=== PATIENT | male | born 1955 | race Caucasian/White ===

== ENCOUNTER 2017-12-14 10:58 | Day surgery (SDC) | payer BC ==
--- NOTE | 2017-12-13 12:46 | RAD REPORT ---
EXAM DESCRIPTION: RAD - Chest Single View - 12/13/2017 12:41 pm CLINICAL HISTORY: Coronary artery disease, hypertension Chest pain. COMPARISON: Chest Pa And Lat (2 Views) dated 06/28/2017; Chest Pa And Lat (2 Views) dated 06/04/2016 FINDINGS: Portable technique limits examination quality. Advanced COPD is present with calcified granulomata right apex. No focal infiltrate detected. The hea rt is normal in size. No displaced fractures. IMPRESSION: Prominent COPD.
[2017-12-13 13:06] LABS: Absolute Lymphocytes (CBC) 1.5 K/uL (0.7-4.9); Absolute Monocytes 0.8 K/uL (0.1-1.3); Absolute Neutrophil 2.3 K/uL (1.8-8.0); Hematocrit 41.5 % (39.6-49.0); Lymphocytes % 31.4 % (15.3-44.8); MCH 34.6 pg (27.0-35.0); MCV 97.7 fL (80-100); MPV 7.3 fL (7.6-11.3); Monocytes % 16.8 % (3.3-12.3); RBC Red Blood Cell Count 4.25 M/uL (4.33-5.43)
[2017-12-13 13:13] LABS: Protime INR 0.92
[2017-12-13 13:20] LABS: BUN Blood Urea Nitrogen 9 mg/dL (7-18); Bicarbonate 30 mmol/L (21-32); Glucose Level 88 mg/dL (74-106); Potassium 4.2 mmol/L (3.5-5.1); Sodium Level 130 mmol/L (136-145)
[2017-12-14] MEDS ORDERED: NA CHLORIDE 0.9% 500 ML ONE (11:13)
[2017-12-14] MEDS ORDERED: HEPA 1000U/500MLS 2,000 UNIT/1,000 ML BAG IV ONE (13:04)
[2017-12-14] MEDS ORDERED: MIDAZOLAM HCL 2 MG/2 ML INJ ONE ×4 (13:17→14:29)
[2017-12-14] MEDS ORDERED: FENTANYL CITR 100 MCG/2 ML ONE (13:18)
[2017-12-14] MEDS ORDERED: HEPARIN 5000 UNIT/ML 1 ML VIAL ONE (14:04)
[2017-12-14] MEDS ORDERED: CLOPIDOGREL 75 MG TABLET ONE (15:51)
[2017-12-14] MEDS ORDERED: cloNIDine HCl 0.1 MG TAB ONE (15:51)
--- NOTE | 2017-12-15 02:31 | OP ---
Date of Procedure: 12/14/2017 Surgeon: Navdeep Jeffers MD Policy Writer: Melanie Zamora. The patient will be observed for 2 hours and go home on his home medication plus Plavix and he will s ee me in the office in about 2-3 weeks. Procedures: Left heart catheterization, selective coronary arteriogram, abdominal angiogram with run off, selective left iliac angiogram, angioplasty and stent of the distal common femoral artery and pr oximal superficial femoral artery. Indication: Chest pain, abnormal EKG, peripheral vascular disease. History Of Present Illness: Mr. Wright is 62. He came in as an outpatient for the heart cathete rization and abdominal angiogram with run-off. Indication: Unstable angina, abnormal EKG, peripheral arterial disease. Procedure In Detail: He was brought in to the equipment operator/laborer/supervisor as an outpatient, prepped and draped in the r outine sterile fashion, and was given 6 mg of Versed total for IV sedation. A 6-Nepalese sheath was in troduced in the right common femoral artery. Coronary angiography was performed using 6-Nepalese Judki ns catheter on the right. He only had some minimal plaquing at the wall. Abdominal angiogram with r unoff showed normal iliacs, normal renals, and normal distal aorta. The right lower extremity arteri al angiogram was normal. On the left side, he had a totally occluded common femoral artery which ext ended all the way to the SFA. I used a guidewire to go up and over from the right common iliac to th e left iliac to cross the lesion. Following that, balloon dilatation was done with a 4 x 39 Jordan b alloon. After which a 6 x 80 self-expanding Protege stent was used, was about 20% residual. This wa s post dilated with a 6 x 39 balloon with excellent results. There were no complications. Blood los s was 5 cc. Total conscious sedation was 60 minutes. The patient received Plavix and aspirin during the procedure. Final Diagnoses: Minimal coronary artery disease, peripheral arterial disease severe, status post an gioplasty and stent and the complete occlusion of the common femoral artery and SFA. SISI/MODL Voice ID: [id number] Report ID: [id number]
== END 2017-12-14 18:53 | disposition home or self-care (01) ==
LOC: CCL 10:58
PROC: 4A023N7 Measurement of Cardiac Sampling and Pressure, Left Heart, Percutaneous Approach (ICD-10-PCS; principal; 2017-12-14)
PROC: B211YZZ Fluoroscopy of Multiple Coronary Arteries using Other Contrast (ICD-10-PCS; 2017-12-14)
PROC: 047L3EZ Dilation of Left Femoral Artery with Two Intraluminal Devices, Percutaneous Approach (ICD-10-PCS; 2017-12-14)
PROC: 047D3DZ Dilation of Left Common Iliac Artery with Intraluminal Device, Percutaneous Approach (ICD-10-PCS; 2017-12-14)
PROC: B410YZZ Fluoroscopy of Abdominal Aorta using Other Contrast (ICD-10-PCS; 2017-12-14)
DX: I25.10 Atherosclerotic heart disease of native coronary artery without angina pectoris (principal); R07.89 Other chest pain; K21.0 Gastro-esophageal reflux disease with esophagitis; I10 Essential (primary) hypertension; J44.9 Chronic obstructive pulmonary disease, unspecified; I70.213 Atherosclerosis of native arteries of extremities with intermittent claudication, bilateral legs; I77.1 Stricture of artery
CPT/HCPCS: 36415; 37221; 37226; 71045; 75630; 80048; 85025; 85610; 85730; 93454; C1725; C1760; C1769; C1887; C1893; J1644; J2250; J3010

== ENCOUNTER 2019-06-04 21:17 | Observation (INO) | payer BC ==
[2019-06-04] MEDS ORDERED: ONDANSETRON 4 MG/2 ML VIAL ONE (21:47)
[2019-06-04] MEDS ORDERED: MORPHINE 4 MG/ML SYR ONE (21:49)
[2019-06-04] MEDS ORDERED: NA CHLORIDE 0.9% 1,000 ML ONE (21:54)
[2019-06-04 22:09] LABS: Absolute Lymphocytes (CBC) 1.5 K/uL (0.7-4.9); Basophils % 0.3 % (0-1.3); Hematocrit 38.9 % (39.6-49.0); Lymphocytes % 14.7 % (15.3-44.8); MPV 7.2 fL (7.6-11.3); RBC Red Blood Cell Count 3.83 M/uL (4.33-5.43)
[2019-06-04 22:26] LABS: ALT/SGPT 55 U/L (12-78); AST/SGOT 23 U/L (15-37); Albumin 3.7 g/dL (3.4-5.0); Alkaline Phosphatase 66 U/L (45-117); BUN Blood Urea Nitrogen 12 mg/dL (7-18); Bicarbonate 26 mmol/L (21-32); Bilirubin Direct 0.3 mg/dL (0-0.2); Glucose Level 98 mg/dL (74-106); Lipase 117 U/L (73-393); Potassium 3.3 mmol/L (3.5-5.1); Protein, Total 7.8 g/dL (6.4-8.2); Sodium Level 131 mmol/L (136-145)
--- NOTE | 2019-06-04 23:25 | ER ---
Nurse's Notes [facility] Name: Erick Wright Age: 64 yrs Sex: Male : 1955 Arrival Date: 06/04/2019 Time: 21:20 Bed 19 Private MD: Diagnosis: Acute appendicitis Presentation: 06/04 21:25 Presenting complaint: Patient states: Epigastric pain that started on Wednesday that aj1 spread through out his whole abdomen, now the pain is better but he feels sore in the lower abdomen. Denies N/V/D. Reports that he think he might have been running fever earlier at home. Transition of care: patient was not received from another setting of care. Onset of symptoms was 2019. Risk Assessment: Do you want to hurt yourself or someone else? Patient reports no desire to harm self or others. Initial Sepsis Screen: Does the patient meet any 2 criteria? No. Patient's initial sepsis screen is negative. Does the patient have a suspected source of infection? No. Patient's initial sepsis screen is negative. Care prior to arrival: None. 21:25 Method Of Arrival: Ambulatory aj 21:25 Acuity: JUANI 3 aj1 Triage Assessment: 21:31 General: Appears in no apparent distress. comfortable, Behavior is calm, cooperative, aj1 appropriate for age. Pain: Complains of pain in abdomen. Neuro: Level of Consciousness is awake, alert, obeys commands. Cardiovascular: Patient's skin is warm and dry. Respiratory: Airway is patent Respiratory effort is even, unlabored, Respiratory pattern is regular, symmetrical. GI: Reports lower abdominal pain. Historical: - Allergies: 21:31 No Known Allergies; aj1 - Home Meds: 21:31 Genet Oral [Active]; Motrin Oral [Active]; irbesartan-hydrochlorothiazide oral oral aj1 [Active]; Methocarbamol Oral [Active]; - PMHx: 21:31 fracture of L2 vertebre; Hypertension; PAD; 2 stents in leg; aj1 - PSHx: 21:31 screws in right shoulder; aj1 - Immunization history:: Flu vaccine is up to date. - Social history:: Smoking status: Patient/guardian denies using tobacco. - Ebola Screening: : Patient denies travel to an Ebola-affected area in the 21 days before illness onset. Screenin:50 Abuse screen: Denies threats or abuse. Denies injuries from another. Nutritional wh screening: No deficits noted. Tuberculosis screening: No symptoms or risk factors identified. Fall Risk None identified. Assessment: 21:50 General: Appears in no apparent distress. Behavior is calm, cooperative, appropriate wh for age. Pain: Complains of pain in right lower quadrant and left lower quadrant Pain does not radiate. Pain currently is 7 out of 10 on a pain scale. Quality of pain is described as aching. Neuro: Level of Consciousness is awake, alert, obeys commands, Oriented to person, place, time, situation, Appropriate for age. Cardiovascular: Heart tones S1 S2. Respiratory: Airway is patent Respiratory effort is even, unlabored, Respiratory pattern is regular, symmetrical, Breath sounds are clear bilaterally. GI: Abdomen is flat, non-distended, Bowel sounds present X 4 quads. Abd is soft Abdomen is tender to palpation in right lower quadrant and left lower quadrant Reports lower abdominal pain. : No signs and/or symptoms were reported regarding the genitourinary system. EENT: No signs and/or symptoms were reported regarding the EENT system. Derm: Skin is intact, is healthy with good turgor, Skin is pink, warm \T\ dry. normal. Musculoskeletal: Circulation, motion, and sensation intact. 23:13 Reassessment: Patient appears in no apparent distress at this time. No changes from previously documented assessment. Patient and/or family updated on plan of care and expected duration. Pain level reassessed. Patient is alert, oriented x 3, equal unlabored respirations, skin warm/dry/pink. Patient states feeling better. Patient states symptoms have improved. 06/05 00:07 Reassessment: Patient appears in no apparent distress at this time. No changes from previously documented assessment. Patient and/or family updated on plan of care and expected duration. Pain level reassessed. Patient is alert, oriented x 3, equal unlabored respirations, skin warm/dry/pink. Patient states feeling better. Patient states symptoms have improved. 01:30 Reassessment: Patient appears in no apparent distress at this time. No changes from previously documented assessment. Patient and/or family updated on plan of care and expected duration. Pain level reassessed. Patient is alert, oriented x 3, equal unlabored respirations, skin warm/dry/pink. Patient states feeling better. Patient states symptoms have improved. Vital Signs: 06/04 21:32 BP 197 / 106; Pulse 93; Resp 18; Temp 98.0; Pulse Ox 95% on R/A; Weight 75.75 kg (R); aj1 Height 5 ft. 7 in. (170.18 cm) (R); Pain 8/10; 23:16 BP 169 / 92; Pulse 91; Resp 18; Pulse Ox 98% on R/A; wh 06/05 00:08 BP 155 / 92; Pulse 80; Resp 18; Pulse Ox 98% on R/A; wh 01:30 BP 135 / 84; Pulse 75; Resp 18; Pulse Ox 96% on R/A; wh 06/04 21:32 Body Mass Index 26.16 (75.75 kg, 170.18 cm) aj1 ED Course: 06/04 21:20 Patient arrived in ED. jg7 21:28 Triage completed. aj1 21:32 Arm band placed on Patient placed in an exam room. aj1 21:36 Enrique Stone NP is PHCP. pm1 21:36 Margie Han MD is Attending Physician. pm1 21:40 Desmond Cooper is Primary Nurse. wh 21:47 Radiology exam delayed due to lab results not completed at this time. (BUN/Creatinine). bq 21:50 Patient has correct armband on for positive identification. Bed in low position. Call light in reach. Side rails up X 1. Pulse ox on. NIBP on. 21:55 Inserted saline lock: 20 gauge in right wrist, using aseptic technique. Blood collected.ds4 22:46 CT completed. Patient tolerated procedure well. Patient moved back from CT. mw3 22:52 CT Abd/Pelvis - IV Contrast Only In Process Unspecified. EDMS 23:25 Juan Zaragoza is Hospitalizing Provider. pm1 23:33 Cruz Eubanks MD is Hospitalizing Provider. pm1 06/05 00:01 Chest Single View XRAY In Process Unspecified. EDMS 02:00 No provider procedures requiring assistance completed. Patient admitted, IV remains in place. Administered Medications: 06/04 21:56 Drug: NS 0.9% 1000 ml Route: IV; Rate: 1000 ml; Site: right wrist; 06/05 00:02 Follow up: Response: No adverse reaction; IV Status: Completed infusion 06/04 21:58 Drug: morphine 4 mg Route: IVP; Site: right wrist; 23:11 Follow up: Response: No adverse reaction; Pain is decreased; RASS: Alert and Calm (0) 06/05 00:02 Follow up: Response: No adverse reaction; Pain is decreased; RASS: Alert and Calm (0) 06/04 22:00 Drug: Zofran 4 mg Route: IVP; Site: right wrist; 23:11 Follow up: Response: No adverse reaction; Nausea is decreased 06/05 00:02 Follow up: Response: No adverse reaction; Nausea is decreased 00:05 Drug: Zosyn 3.375 grams Route: IVPB; Infused Over: 60 mins; Site: right wrist; 02:00 Follow up: Response: No adverse reaction; IV Status: Completed infusion 00:18 Drug: NS 0.9% 1000 ml Route: IV; Rate: 100 ml/hr; Site: right wrist; 02:00 Follow up: Response: No adverse reaction; IV Status: Infusion continued upon admission Outcome: 06/04 23:25 Decision to Hospitalize by Provider. pm1 06/05 02:01 Admitted to Med/surg accompanied by tech, family with patient, via wheelchair, room wh 231, with chart, Report called to Indira Chowdhury RN Condition: stable Instructed on the need for admit. 02:36 Patient left the ED. Signatures: Dispatcher [employer] Aviva Aguillon RN RN ajMaddison Casiano Donovan ds4 Enrique Stone, RUBIA OUTREACH DIRECTOR pm1 Desmond Cooper Susanna Max mw3 Arabella Hurd7
--- NOTE | 2019-06-04 23:26 | EDPHYS ---
Physician Documentation [facility] Name: Erick Wright Age: 64 yrs Sex: Male : 1955 Arrival Date: 06/04/2019 Time: 21:20 Bed 19 Private MD: ED Physician Margie Han HPI: 06/04 21:45 This 64 yrs old Male presents to ER via Ambulatory with complaints of pm1 Abdominal Pain. 21:45 The patient presents with abdominal pain. pm1 21:45 Onset: The symptoms/episode began/occurred 2 day(s) ago. The symptoms do not radiate. pm1 Associated signs and symptoms: Pertinent positives: subjective fever, Pertinent negatives: nausea, vomiting, and diarrhea, chest pain, shortness of breath. The symptoms are described as burning, constant. Modifying factors: The symptoms are alleviated by nothing, the symptoms are aggravated by touching the area. Severity of pain: in the emergency department the pain has improved with NSAIDs. The patient has not experienced similar symptoms in the past. The patient has not recently seen a physician, has an appointment scheduled, tomorrow for evaluation of his L2 fracture. Historical: - Allergies: 21:31 No Known Allergies; aj1 - Home Meds: 21:31 Genet Oral [Active]; Motrin Oral [Active]; irbesartan-hydrochlorothiazide oral oral aj1 [Active]; Methocarbamol Oral [Active]; - PMHx: 21:31 fracture of L2 vertebre; Hypertension; PAD; 2 stents in leg; aj1 - PSHx: 21:31 screws in right shoulder; aj1 - Immunization history:: Flu vaccine is up to date. - Social history:: Smoking status: Patient/guardian denies using tobacco. - Ebola Screening: : Patient denies travel to an Ebola-affected area in the 21 days before illness onset. ROS: 21:45 Neck: Negative for injury, pain, and swelling, Cardiovascular: Negative for chest pain, pm1 palpitations, and edema, Respiratory: Negative for shortness of breath, cough, wheezing, and pleuritic chest pain. 21:45 Back: Negative for injury and pain, : Negative for injury, bleeding, discharge, and swelling, MS/Extremity: Negative for injury and deformity, Skin: Negative for injury, rash, and discoloration, Neuro: Negative for headache, weakness, numbness, tingling, and seizure. 21:45 Constitutional: Positive for subjective fever. 21:45 Abdomen/GI: Positive for abdominal pain, Negative for nausea, vomiting, and diarrhea, constipation. 21:45 All other systems are negative. Exam: 21:45 Constitutional: This is a well developed, well nourished patient who is awake, alert, pm1 and in no acute distress. Head/Face: Normocephalic, atraumatic. Chest/axilla: Normal chest wall appearance and motion. Nontender with no deformity. No lesions are appreciated. Cardiovascular: Regular rate and rhythm with a normal S1 and S2. No gallops, murmurs, or rubs. No pulse deficits. Respiratory: Lungs have equal breath sounds bilaterally, clear to auscultation and percussion. No rales, rhonchi or wheezes noted. No increased work of breathing, no retractions or nasal flaring. 21:45 Skin: Warm, dry with normal turgor. Normal color with no rashes, no lesions, and no evidence of cellulitis. MS/ Extremity: Pulses equal, no cyanosis. Neurovascular intact. Full, normal range of motion. 21:45 Abdomen/GI: Inspection: obese Bowel sounds: normal, Palpation: soft, in all quadrants, moderate abdominal tenderness, in the right lower quadrant, mass, is not appreciated, rebound tenderness, is not appreciated. 21:45 Neuro: Orientation: is normal, Motor: is normal, moves all fours. Vital Signs: 21:32 BP 197 / 106; Pulse 93; Resp 18; Temp 98.0; Pulse Ox 95% on R/A; Weight 75.75 kg (R); aj1 Height 5 ft. 7 in. (170.18 cm) (R); Pain 8/10; 23:16 BP 169 / 92; Pulse 91; Resp 18; Pulse Ox 98% on R/A; wh 06/05 00:08 BP 155 / 92; Pulse 80; Resp 18; Pulse Ox 98% on R/A; wh 01:30 BP 135 / 84; Pulse 75; Resp 18; Pulse Ox 96% on R/A; wh 06/04 21:32 Body Mass Index 26.16 (75.75 kg, 170.18 cm) [facility] MDM: 06/04 21:44 Patient medically screened. pm1 23:24 Data reviewed: vital signs. Data interpreted: Pulse oximetry: on room air is 98 %. pm1 Interpretation: normal. Counseling: I had a detailed discussion with the patient and/or guardian regarding: the historical points, exam findings, and any diagnostic results supporting the discharge/admit diagnosis, lab results, radiology results, the need for further work-up and treatment in the hospital. 23:37 Physician consultation: Cruz Eubanks MD was called at 23:37, was contacted at 23:37, pm1 regarding admission, patient's condition, Admit to his service. NPO, IV fluids, Zosyn. Will perform the surgery in the AM. 06/04 21:37 Order name: Basic Metabolic Panel; Complete Time: 22:30 pm1 06/04 21:37 Order name: CBC with Diff; Complete Time: 22:30 pm06/04 21:37 Order name: Creatinine for Radiology; Complete Time: 22:30 pm06/04 21:37 Order name: Hepatic Function; Complete Time: 22:30 pm06/04 21:37 Order name: Lipase; Complete Time: 22:30 pm06/04 23:39 Order name: PT-INR; Complete Time: 01:09 pm06/04 21:37 Order name: CT Abd/Pelvis - IV Contrast Only pm06/04 23:39 Order name: Chest Single View XRAY pm06/04 23:39 Order name: Ptt, Activated; Complete Time: 01:09 pm06/04 23:40 Order name: Urine Dipstick--Ancillary (enter results); Complete Time: 00:40 il 06/04 21:37 Order name: IV Saline Lock; Complete Time: 21:50 pm06/04 21:37 Order name: Labs collected and sent; Complete Time: 21:50 pm06/04 21:45 Order name: Urine Dipstick-Ancillary (obtain specimen); Complete Time: 23:11 pm06/04 23:30 Order name: NPO; Complete Time: 23:36 pm1 06/04 23:39 Order name: EKG; Complete Time: 23:40 pm06/04 23:39 Order name: EKG - Nurse/Tech; Complete Time: 00:03 pm1 Administered Medications: 21:56 Drug: NS 0.9% 1000 ml Route: IV; Rate: 1000 ml; Site: right wrist; 06/05 00:02 Follow up: Response: No adverse reaction; IV Status: Completed infusion 06/04 21:58 Drug: morphine 4 mg Route: IVP; Site: right wrist; 23:11 Follow up: Response: No adverse reaction; Pain is decreased; RASS: Alert and Calm (0) 06/05 00:02 Follow up: Response: No adverse reaction; Pain is decreased; RASS: Alert and Calm (0) 06/04 22:00 Drug: Zofran 4 mg Route: IVP; Site: right wrist; 23:11 Follow up: Response: No adverse reaction; Nausea is decreased 06/05 00:02 Follow up: Response: No adverse reaction; Nausea is decreased 00:05 Drug: Zosyn 3.375 grams Route: IVPB; Infused Over: 60 mins; Site: right wrist; 02:00 Follow up: Response: No adverse reaction; IV Status: Completed infusion 00:18 Drug: NS 0.9% 1000 ml Route: IV; Rate: 100 ml/hr; Site: right wrist; 02:00 Follow up: Response: No adverse reaction; IV Status: Infusion continued upon admission Disposition: 06/04/19 23:25 Hospitalization ordered by Cruz Eubanks for Inpatient Admission. Preliminary diagnosis is Acute appendicitis. - Bed requested for Telemetry/MedSurg (Inpatient). - Status is Inpatient Admission. - Condition is Stable. - Problem is new. - Symptoms have improved. UTI on Admission? No Addendum: 06/06/2019 04:34 Co-signature as Attending Physician, Margie Han MD. m a2 Signatures: Dispatcher [employer] EDMS Aviva Escalona RN RN aj1 Tala Marion RN RN cg Marinas, Patrick, RUBIA PUMP MECHANIC pm1 Desmond Cooper Margie Han MD MD ma2 Corrections: (The following items were deleted from the chart) 06/04 23:34 23:25 Hospitalization Ordered by Juan Zaragoza for Inpatient Admission. Preliminary pm1 diagnosis is Acute appendicitis. Bed requested for Telemetry/MedSurg (Inpatient). Status is Inpatient Admission. Condition is Stable. Problem is new. Symptoms have improved. UTI on Admission? No. pm1 06/05 01:51 01/12 23:34 06/04/2019 23:25 Hospitalization Ordered by Cruz Eubanks MD for Inpatient cg Admission. Preliminary diagnosis is Acute appendicitis. Bed requested for Telemetry/MedSurg (Inpatient). Status is Inpatient Admission. Condition is Stable. Problem is new. Symptoms have improved. UTI on Admission? No. pm1 06/05 02:36 01:51 06/04/2019 23:25 Hospitalization Ordered by Cruz Eubanks MD for Inpatient Admission. Preliminary diagnosis is Acute appendicitis. Bed requested for Telemetry/MedSurg (Inpatient). Status is Inpatient Admission. Condition is Stable. Problem is new. Symptoms have improved. UTI on Admission? No. cg
[2019-06-04] MEDS ORDERED: PIPER/TAZO/NS 3.375gm 3.375 GM/100 ML BAG ONE (23:42)
[2019-06-04 23:53] LABS: Urine Blood NEGATIVE (NEG); Urine Glucose NEGATIVE (NEG); Urine Protein NEGATIVE (NEG)
[2019-06-05] MEDS ORDERED: NA CHLORIDE 0.9% 1,000 ML ONE (00:14)
[2019-06-05 00:21] LABS: Protime INR 1.03
[2019-06-05] MEDS: D5 0.45 NS 1,000 ML IV SCH ×4 (02:06→18:06)
[2019-06-05] MEDS ORDERED: ONDANSETRON 4 MG/2 ML VIAL IV PRN (02:06)
[2019-06-05 02:34] VITALS: BMI 25.0
[2019-06-05] MEDS: MORPHINE 4 MG/ML SYR IV PRN ×2 (03:07→21:56)
--- NOTE | 2019-06-05 05:28 | EKG ---
Test Date: 2019-06-04 Test Time: 23:48:39 [employer] Attendant: NORMAN MEASUREMENT RESULTS: Intervals: Rate: 75 WV: 152 QRSD: 138 QT: 420 QTc: 469 [place]: P: 72 WV: 152 QRS: 88 T: 269 INTERPRETIVE STATEMENTS: Normal sinus rhythm Left bundle branch block Abnormal ECG No previous ECG available for comparison Electronically Signed On 06-05-19 05:28:41 SCRAP PICKER by Blade Seals
[2019-06-05] MEDS ORDERED: PIPERACIL/TAZO 3.375 GM VIAL IV ONE (05:39)
[2019-06-05] MEDS ORDERED: NA CHLORIDE 0.9% 100 ML ONE (05:43)
[2019-06-05] MEDS ORDERED: PIPER/TAZO/NS 3.375gm 3.375 GM/100 ML BAG IVPB SCH (06:00)
--- NOTE | 2019-06-05 08:06 | RAD REPORT ---
EXAM DESCRIPTION: Leelee Single View06/05/2019 12:00 am CLINICAL HISTORY: Abdominal pain/preop COMPARISON: 2017 FINDINGS: The lungs appear clear of acute infiltrate. The heart is normal size IMPRESSION: No acute abnormalities displayed
[2019-06-05] MEDS ORDERED: propofoL 200 MG/20 ML VIAL IV ONE (08:40)
[2019-06-05] MEDS ORDERED: GLYCOPYRROLATE 0.2 MG/ML SYR ONE ×2 (08:41→10:34)
[2019-06-05] MEDS ORDERED: ROCURONIUM 50 MG/5 ML VIAL IV ONE (08:41)
[2019-06-05] MEDS ORDERED: dexAMETHasone 10 MG/ML VIAL ONE (08:41)
[2019-06-05] MEDS ORDERED: MIDAZOLAM HCL 2 MG/2 ML INJ ONE (08:41)
[2019-06-05] MEDS ORDERED: LIDOCAINE 2% MPF 5 ML VIAL ONE (08:41)
[2019-06-05] MEDS ORDERED: FENTANYL CITR 100 MCG/2 ML ONE (08:41)
[2019-06-05] MEDS ORDERED: Ringers Lactate 1,000 ML IV ONE (09:17)
[2019-06-05] MEDS: PIPER/TAZO/NS 3.375gm 3.375 GM/100 ML BAG IVPB SCH ×2 (10:00→16:10)
--- NOTE | 2019-06-05 10:13 | RAD REPORT ---
EXAM DESCRIPTION: CT - Abdomen Pelvis W Contrast - 06/05/2019 3:03 am CLINICAL HISTORY: 64 years Male ABD PAIN TECHNIQUE: Contiguous axial images obtained through the abdomen and pelvis following administration of intravenous contrast. Coronal and sagittal reformatted images provided. This CT exam was performed according to our departmental dose-optimization program, which includes on e or more of the following dose reduction techniques: automated exposure control, adjustment of the m A and/or kV according to patient size, and/or use of iterative reconstruction technique. COMPARISON: No prior exams provided for comparison. FINDINGS: The appendix is abnormal, demonstrating distention up to 10 mm with a small amount of free fluid in the right lower quadrant. The remainder of the bowel is normal without obstruction. There i s no free intraperitoneal air or abscess. Minimal bibasilar atelectasis. Calcified granulomata in the spleen. Steatosis of the liver without fo diamond lesion. The biliary tree, gallbladder, pancreas, adrenal glands, left kidney, and urinary bladder are normal. Small right renal cyst. Atherosclerosis without abdominal aortic aneurysm or retroperitoneal hemorrhage. Stent in the left co mmon femoral artery. Chronic degenerative changes in the spine. Evidence of prior hardware removal in the left proximal fe mur. Avascular necrosis of both femoral heads without articular surface collapse. IMPRESSION: Acute appendicitis without free intraperitoneal air or abscess. Avascular necrosis of both femoral heads without articular surface collapse. Electronically signed by: Johana Wray MD 06/04/2019 11:04 PM E COMMERCE PROJECT MANAGER THIS REPORT CONTAINS FINDINGS THAT MAY BE CRITICAL TO PATIENT CARE: The findings were verbally discu ssed via telephone conference with Dr. Margie Han By Dr. Johana Wray on 06/04/2019 11:04 PM E COMMERCE PROJECT MANAGER .The results were acknowledged and understood. Due to temporary technical issues with the PACS/Fluency reporting system, reports are being signed by the in house radiologist as a courtesy to ensure prompt reporting. The interpreting radiologist is f ully responsible for the content of the report.
[2019-06-05] MEDS ORDERED: KETOROLAC 30 MG/ML INJ ONE (10:32)
[2019-06-05] MEDS ORDERED: NEOSTIGMINE 1 MG/ML -5 ML ONE (10:34)
--- NOTE | 2019-06-05 11:01 | P.BOP ---
Preoperative diagnosis: acute appendicitis Postoperative diagnosis: same Primary procedure: Laparoscopic appendectomy Emergency Veterinary Assistant: JOHN SUERO (check pilot) Estimated blood loss: <10cc Specimen: chapis Findings: as above Anesthesia: General Complications: None Transferred to: Recovery Room Condition: Good
[2019-06-05] MEDS ORDERED: HYDROCODONE/APAP 7.5/325 MG TAB PO PRN (11:02)
--- NOTE | 2019-06-05 19:46 | HP ---
Date of Admission: 06/05/2019 Diagnosis: Acute appendicitis. History Of Present Illness: This is the case of a 64-year-old patient, who was having abdominal pain since last Wednesday associated with nausea. No vomiting. He thought this was bug bite or so, so he d id not come to the hospital until this oracle etl developer when he comes to the hospital diagnosed with acu te appendicitis. He denies any dysuria, hematuria, hematochezia, or melena. Denies any recent trave [place]ling out of the country. Denies any family member sick at home. Review of Systems: Ten-point otherwise unremarkable. Past Medical History: Includes peripheral vascular disease, hypertension. Past Surgical History: Include right shoulder surgery, stent on the femoral on the left side as per patient. He also have history of L2 fracture, has been moving around and he said happen when he was doing heavy lifting and need a surgeon supposed to see him and to see if there is anything have to be done. This happened more than a month ago. Social History: He does smoke. He does not drink alcohol. Family History: Noncontributory. Physical Examination: General: Patient is awake and alert. HEENT: Pupils are equal and reactive, anicteric. Neck: Supple. Chest: Clear. Heart: S1, S2. Abdomen: Right lower quadrant tenderness with Rovsing sign and psoas sign positive and peritonitis. Rectal: Deferred. Back: No step-off. Extremities: Full range of motion x4. Dorsalis pedis diminished bilaterally. Cranial nerves 2 thro ugh 12 grossly within normal limits. Imaging: CAT scan official report still pending. Preliminary shows acute appendicitis. Assessment: This is a 64-year-old patient with peripheral vascular disease. Now come with acute abd ominal pain, acute appendicitis. So, we offered laparoscopic possible open appendectomy with benefit s, alternatives, and risks including, but not limited to infection, bleeding, damage to adjacent stru ctures, anesthesia complication, myocardial infarction, and even . He also understands this may not relieve any symptoms. He might need more than one surgical intervention. He understands the im portance of no heavy lifting. He is not on any anticoagulation. The stent was placed several years ago as per patient. He is ambulatory right now. He is going to postpone his neurosurgical evaluatio n since that is supposed to be done in [place]. He was advised also the importance of colonoscopies in the next few weeks if he finds that he has not done it in the last 5 years. He is not sure about that. The OR was emergently called. ILA Voice ID: [id number]
--- NOTE | 2019-06-05 22:25 | OP ---
Date of Procedure: 06/05/2019 Surgeon: Cruz Eubanks MD Human Resources Professional: SATURNINO Morris Preoperative Diagnosis: Acute appendicitis. Postoperative Diagnosis: Acute appendicitis. Procedure: Laparoscopic appendectomy. Specimen: Appendix. Anesthesia: General plus local. Indications: This is a case of a 64-year-old patient, who comes to us with acute appendicitis. The benefits, alternatives, and risks of emergent laparoscopic, possible open appendectomy fully explaine d, which included but not limited to infection, bleeding, damage to adjacent structures as complicati on, choledocholithiasis, bile leak, pancreatitis, RI, and even . He also understands this may n ot relieve any symptoms. He might need more than one surgical invention. He understood, signed a co nsent. Description Of Procedure: Patient was brought to the operating room, placed in supine position. Ane sthesia was done without complication. Abdominal area was prepped and draped in a sterile fashion. Marcaine 0.5% was injected for local anesthetic, followed by sharp incision of the skin in the infrau mbilical region. Incision was carried down to fascia, which was opened under direct vision. Periton eum was encountered, opened under direct vision. Vicryl #1 placed inside the fascia. Jack trocar was carefully introduced. No bleeding was obtained. I placed 2 more trocars, 5 mm each one of them, in the suprapubic and left lower quadrant under direct visualization. This allowed me to visualize the area of the appendix, which looked inflamed. The base of the appendix seemed to be spared from i t, so we created a window in the base of the appendix, transected it out with an Endo JONATHAN 45 mm 3.5, and the mesoappendix with an Endo JONATHAN 45 mm 2.5. Appendix was removed from abdominal cavity using an EndoCatch through the umbilical incision. The area was irrigated and suctioned. No bleeding. No b owel leak. At that moment, I proceeded to remove the trocars under direct vision. Deflated the pneu moperitoneum. Closed the fascia with #1 Vicryl. Irrigated subcutaneous tissue, closed that with 3-0 chromic and skin with staple. Sponge count and instrument count were correct. Patient tolerated th e procedure well. Patient was sent to recovery in stable condition. HM/MODL Voice ID: [id number] Report ID: [id number]
[2019-06-06] MEDS: D5 0.45 NS 1,000 ML IV SCH ×2 (00:24→10:06)
[2019-06-06] MEDS: PIPER/TAZO/NS 3.375gm 3.375 GM/100 ML BAG IVPB SCH ×2 (00:24→08:24)
[2019-06-06] MEDS: MORPHINE 4 MG/ML SYR IV PRN (06:14)
[2019-06-06 06:19] LABS: Hematocrit 35.7 % (39.6-49.0); Lymphocytes % 9.3 % (15.3-44.8); MPV 7.9 fL (7.6-11.3); RBC Red Blood Cell Count 3.46 M/uL (4.33-5.43)
[2019-06-06 06:35] LABS: Albumin 3.3 g/dL (3.4-5.0); Bilirubin Direct 0.2 mg/dL (0-0.2); Bilirubin Total 0.5 mg/dL (0.2-1.0); Potassium 3.8 mmol/L (3.5-5.1); Protein, Total 7.4 g/dL (6.4-8.2)
[2019-06-06 08:58] LABS: Blood Morphology Comment NOT SEEN (NOT SEEN); Platelet Estimate ADEQ; Urine White Blood Cell Casts OK
[2019-06-06 09:18] VITALS: TEMP 97.6
[2019-06-06 15:06] VITALS: BP 145/69
[2019-06-06 15:29] VITALS: O2SAT 98
== END 2019-06-06 15:11 | disposition home or self-care (01) ==
LOC: ER 21:17 → INTOOBSV 06-05 02:04 → 2ND 06-05 02:04
PROVIDERS: ADMIT Surgery; ATTEND Surgery
PROC: 0DTJ4ZZ Resection of Appendix, Percutaneous Endoscopic Approach (ICD-10-PCS; principal; 2019-06-05 11:30)
DX: K35.80 Unspecified acute appendicitis (principal); I73.9 Peripheral vascular disease, unspecified; I10 Essential (primary) hypertension
CPT/HCPCS: 96365; 96361; 93005; 85025 ×2; 80048 ×2; 36415 ×2; 85610; 80076 ×2; 88304; 85730; 81003; 83690 ×2; 74177; 71045; 96375; 99285; 96366; 44970; J2704; J2543 ×3; J2250; J3010; J1100; J2710; G0378 ×4; J7799 ×2; J7120; J7030 ×2; J2405

== ENCOUNTER 2020-08-05 07:09 | Day surgery (SDC) | payer BC ==
[2020-08-05] MEDS ORDERED: Ringers Lactate 1,000 ML IV ONE (08:12)
[2020-08-05] MEDS ORDERED: GLYCOPYRROLATE 0.2 MG/ML SYR ONE (08:27)
[2020-08-05] MEDS ORDERED: propofoL 200 MG/20 ML VIAL IV ONE (08:27)
[2020-08-05] MEDS ORDERED: LIDOCAINE 1% MPF 30 ML VIAL ONE (08:27)
--- NOTE | 2020-08-05 08:53 | ENDO RPT ---
[address], [address] COLONOSCOPY PROCEDURE REPORT EXAM DATE: 08/05/2020 PATIENT NAME: Erick Wright MR #: [id number] BIRTHDATE: 1955 ATTENDING: Cruz Eubanks MD STATUS: outpatient ACTUARIAL ASSISTANT: Rory Little COOKING SHOW HOST, Zari Scruggs RN, and Arabella Brady CST INDICATIONS: The patient is a 65 yr old Male here for a colonoscopy due to colon cancer screening PROCEDURE PERFORMED: Colonoscopy with biopsy - cold polypectomy MEDICATIONS: Per Anesthesia. ESTIMATED BLOOD LOSS: None CONSENT: The patient understands the risks and benefits of the procedure and understands that these risks include, but are not limited to: sedation, allergic reaction, infection, perforation and/or bleeding. Alternative means of evaluation and treatment include, among others: physical exam, x-rays, and/or surgical intervention. The patient elects to proceed with this endoscopic procedure. DESCRIPTION OF PROCEDURE: During intra-op preparation period all mechanical medical equipment was checked for proper function. Hand hygiene and appropriate measures for infection prevention was taken. Procedure, possible complications, alternatives including, but not limited to possibility of bleeding, perforation, tear, infection, sepsis, need for surgery, need for blood transfusion, were explained to the patient. After the risks, benefits and alternatives of the procedure were thoroughly explained, Informed consent was verified, confirmed and timeout was successfully executed by the treatment team. The patient was placed in the left lateral position. A digital rectal exam was performed and revealed external hemorrhoids. After appropriate level of anesthesia, the scope was passed. The EC-[id number] ([id number]) endoscope was introduced through the anus and advanced to the cecum, which was identified by transillumination from the light source, the appendix, and the ileocecal valve. The quality of the prep was good. The instrument was then slowly withdrawn as the colon was fully examined. Scope withdrawal time was . COLON FINDINGS: Diverticula was found in the sigmoid colon. The opening was small. A smooth sessile polyp ranging between 3-5mm in size was found in the sigmoid colon. A polypectomy was performed using hot forceps. The resection was complete, the polyp tissue was completely retrieved and sent to histology. Retroflexed views revealed no abnormalities. The scope was then completely withdrawn from the patient and the procedure terminated. ADVERSE EVENTS: There were no complications. IMPRESSIONS: 1. Diverticula in the sigmoid colon 2. Sessile polyp ranging between 3-5mm in size was found in the sigmoid colon; polypectomy was performed in a piecemeal fashion using hot forceps 3. External hemorrhoids 4. Internal hemorrhoids RECOMMENDATIONS: 1. follow-up: office 1 week(s) 2. hemorrhoidal hygiene 3. no seeds in diet RECALL: for Colonoscopy, pending biopsy results. Cruz Eubanks MD eSigned: Cruz Eubanks MD 08/05/2020 8:52 AM cc: Sudhakar Ward M.D. CPT CODES: ICD9 CODES: PATIENT NAME: Erick Wright MR#: [id number]
[2020-08-05 11:11] VITALS: TEMP 97
[2020-08-05 11:15] VITALS: BP 120/78; O2SAT 96
== END 2020-08-05 09:30 | disposition home or self-care (01) ==
LOC: OR 07:09
PROVIDERS: ATTEND Surgery
PROC: 0DBN8ZX Excision of Sigmoid Colon, Via Natural or Artificial Opening Endoscopic, Diagnostic (ICD-10-PCS; principal; 2020-08-05 08:30)
DX: K63.5 Polyp of colon (principal); K21.9 Gastro-esophageal reflux disease without esophagitis; E78.00 Pure hypercholesterolemia, unspecified; K57.30 Diverticulosis of large intestine without perforation or abscess without bleeding; K64.4 Residual hemorrhoidal skin tags; K64.8 Other hemorrhoids; Z20.822 Contact with and (suspected) exposure to COVID-19
CPT/HCPCS: 88305; 45384; U0002; J2704; J7120

== ENCOUNTER 2021-12-01 09:10 | Emergency (ER) | payer BC ==
[2021-12-01 10:04] LABS: Urine Blood Negative (Negative); Urine Glucose Negative (Negative); Urine Protein Negative (Negative)
--- NOTE | 2021-12-01 10:19 | RAD REPORT ---
EXAM DESCRIPTION: CT - Spine Lumbar Wo Con - 12/01/2021 10:08 am CLINICAL HISTORY: Radiculopathy. back injury, heavy lifting, history of spine fracture COMPARISON: Lumbar Spine 3 Views dated 05/09/2019; Abdomen Pelvis W Contrast dated 06/04/2019 TECHNIQUE: Axial noncontrast CT imaging of the lumbar spine was performed with coronal and sagittal re-formatted images. All CT scans are performed using dose optimization technique as appropriate and may include automated exposure control or mA/KV adjustment according to patient size. FINDINGS: Vertebroplasty cement is noted within the L4 vertebral body. There is chronic superior end plate deformity of the L3 vertebral body as well. An acute compression fracture lumbar spine is not s uspected. Paraspinal tissues are normal in thickness. No paraspinal abscess or hematoma seen. Although limited in assessment there is significant suspicion for disc herniation at L4-5 and L5-S1. Significant central canal stenosis is likely present at L4-5. IMPRESSION: No acute lumbar spine fracture suspected. Vertebroplasty cement is noted at the level of L4 vertebral body. Significant disc herniation with spinal canal stenosis suspected at L4-5.
--- NOTE | 2021-12-01 10:39 | EDPHYS ---
Physician Documentation [facility] Name: Erick Wright Age: 66 yrs Sex: Male : 1955 Arrival Date: 12/01/2021 Time: 09:18 Bed DIS3 Private MD: ED Physician Alexis Krause HPI: 12/01 09:40 This 66 yrs old Male presents to ER via Ambulatory with complaints of Back Pain. jmm 09:40 The patient presents with pain that is acute. The symptoms are located in the low back. jmm Onset: The symptoms/episode began/occurred acutely, 2 day(s) ago. The pain radiates to the right leg and left leg. Patient complains of lower back pain which is worsened with change in position after pushing a boat. Patient states injury was acute with radiation of pain to both legs. Denies bowel or bladder abnormality. . Historical: - Allergies: 09:41 No Known Allergies; ap3 - PMHx: 09:41 2 stents in leg; fracture of L2 vertebre; Hypertension; PAD; ap3 - Immunization history:: Client reports receiving the 1st dose of the Covid vaccine. - Social history:: Smoking status: Patient reports use of chewing tobacco. ROS: 09:40 Constitutional: Negative for fever, chills, and weight loss, Cardiovascular: Negative jmm for chest pain, palpitations, and edema, Respiratory: Negative for shortness of breath, cough, wheezing, and pleuritic chest pain. 09:40 Back: Positive for pain with movement. 09:40 All other systems are negative. Exam: 09:40 Constitutional: This is a well developed, well nourished patient who is awake, alert, jmm and in no acute distress. Head/Face: atraumatic. Eyes: EOMI, no conjunctival erythema appreciated ENT: Moist Mucus Membranes Neck: Trachea midline, Supple Chest/axilla: Normal chest wall appearance and motion. Cardiovascular: Regular rate and rhythm. No edema appreciated Respiratory: Normal respirations, no respiratory distress appreciated Abdomen/GI: Non distended 09:40 Skin: General appearance color normal MS/ Extremity: Moves all extremities, no obvious deformities appreciated, no edema noted to the lower extremities 09:40 Back: pain, ROM is painful, with all movement, vertebral tenderness, is not appreciated. 09:40 Neuro: Orientation: is normal, Mentation: is normal, Memory: is normal, extensor hallucis longus intact bilaterally. 09:40 Psych: Behavior/mood is pleasant, cooperative. Vital Signs: 09:38 BP 185 / 101; Pulse 86; Resp 17; Temp 97.7; Pulse Ox 99% ; Weight 74.84 kg; Height 5 ap3 ft. 7 in. (170.18 cm); Pain 4/10; 09:38 Body Mass Index 25.84 (74.84 kg, 170.18 cm) ap3 MDM: 09:40 Patient medically screened. [facility] 10:37 Data reviewed: vital signs, nurses notes. Counseling: I had a detailed discussion with [facility] the patient and/or guardian regarding: the historical points, exam findings, and any diagnostic results supporting the discharge/admit diagnosis, radiology results, the need for outpatient follow up, to return to the emergency department if symptoms worsen or persist or if there are any questions or concerns that arise at home. ED course: Patient is alert and non toxic in appearance in the ED. I do not suspect cord compression or cauda equina. Patient is advised to follow up with his pcp and otherwise given strict return precautions. Patient understood and agrees with the plan of care. . 12/01 10:04 Order name: Urine Dipstick-Ancillary; Complete Time: 10:13 EDMS 12/01 09:40 Order name: CT Lumbar Spine Wo Con; Complete Time: 10:24 [facility] Administered Medications: No medications were administered Disposition: 17:44 Co-signature as Attending Physician, Alexis Krause MD. rn Disposition Summary: 12/01/21 10:38 Discharge Ordered Location: Home [facility] Condition: Stable [facility] Diagnosis - Strain of muscle, fascia and tendon of abdomen, lower back and pelvis jmm - UTI/ Urinary tract infection, site not specified [facility] Followup: [facility] - With: Private Physician - When: 2 - 3 days - Reason: Recheck today's complaints, Continuance of care, Re-evaluation by your physician Discharge Instructions: - Discharge Summary Sheet [facility] - Lumbar Sprain [facility] Forms: - Medication Reconciliation Form [facility] - Thank You Letter [facility] - Antibiotic Education [facility] - Prescription Opioid Use [facility] Prescriptions: - orphenadrine citrate 100 mg Oral Tablet Sustained Release - take 1 tablet by ORAL route 2 times per day As needed; 20 tablet; Refills: 0, [facility] Product Selection Permitted - Cephalexin 500 mg Oral Capsule - take 1 capsule by ORAL route every 8 hours for 10 days; 30 capsule; Refills: 0, [place] Product Selection Permitted Signatures: Dispatcher [employer] Brandon Almanza PA PA jmm Nieto, Roman, MD MD rn Zara Sanchez RN RN ap3
--- NOTE | 2021-12-01 10:39 | ER ---
Nurse's Notes [facility] Name: Erick Wright Age: 66 yrs Sex: Male : 1955 Arrival Date: 12/01/2021 Time: 09:18 Bed DIS3 Private MD: Diagnosis: Strain of muscle, fascia and tendon of abdomen, lower back and pelvis;UTI/ Urinary tract infection, site not specified Presentation: 12/01 09:38 Chief complaint: Patient states: he was attempting to move a trailer by lifting the ap3 trailer tongue, and now believes he has "broken another bone in his back". Patient states he felt immediate pain mid back. This accident occurred 11/29/21. Coronavirus screen: At this time, the client does not indicate any symptoms associated with coronavirus-19. Ebola Screen: No symptoms or risks identified at this time. Initial Sepsis Screen: Does the patient meet any 2 criteria? No. Patient's initial sepsis screen is negative. Does the patient have a suspected source of infection? No. Patient's initial sepsis screen is negative. Risk Assessment: Do you want to hurt yourself or someone else? Patient reports no desire to harm self or others. Onset of symptoms was November 29, 2021. 09:38 Method Of Arrival: Ambulatory ap3 09:38 Acuity: JUANI 4 ap3 Triage Assessment: 09:43 General: Appears uncomfortable, Behavior is calm, cooperative, appropriate for age. ap3 Pain: Complains of pain in back. Neuro: Level of Consciousness is awake, alert, obeys commands, Oriented to person, place, time, situation, Speech is normal. Cardiovascular: Patient's skin is warm and dry. Respiratory: Airway is patent. Musculoskeletal: Range of motion: intact in all extremities, Reports pain in back. Historical: - Allergies: 09:41 No Known Allergies; ap3 - PMHx: 09:41 2 stents in leg; fracture of L2 vertebre; Hypertension; PAD; ap3 - Immunization history:: Client reports receiving the 1st dose of the Covid vaccine. - Social history:: Smoking status: Patient reports use of chewing tobacco. Screenin:43 Abuse screen: Denies threats or abuse. Nutritional screening: No deficits noted. ap3 Tuberculosis screening: No symptoms or risk factors identified. 11:08 Fall Risk None identified. ss Assessment: 11:08 Reassessment: Pt reports at times the pain travels down his leg. General: Appears in no ss apparent distress. comfortable, Behavior is calm, cooperative, Denies fever, feeling ill, fatigue, chills. Pain: Complains of pain in back Pain currently is 4 out of 10 on a pain scale. Quality of pain is described as tender, Is continuous. Neuro: Victor Agitation-Sedation Scale (RASS): 0 - Alert and Calm Level of Consciousness is awake, alert, obeys commands, Oriented to person, place, time, situation. Cardiovascular: Capillary refill < 3 seconds is brisk in bilateral fingers Patient's skin is warm and dry. Respiratory: Airway is patent Respiratory effort is even, unlabored, Respiratory pattern is regular, symmetrical. GI: No signs and/or symptoms were reported involving the gastrointestinal system. : Denies inability to void, incontinence. Derm: Skin is intact, is healthy with good turgor, Skin is pink, warm \\T\\ dry. normal. Musculoskeletal: Range of motion: intact in all extremities, Swelling absent. Vital Signs: 09:38 BP 185 / 101; Pulse 86; Resp 17; Temp 97.7; Pulse Ox 99% ; Weight 74.84 kg; Height 5 ap3 ft. 7 in. (170.18 cm); Pain 4/10; 09:38 Body Mass Index 25.84 (74.84 kg, 170.18 cm) ap3 ED Course: 09:18 Patient arrived in ED. rg4 09:38 Brandon Adames PA is PHCP. jmm 09:39 Alexis Krause MD is Attending Physician. jmm 09:41 Triage completed. ap3 09:43 Arm band placed on right wrist. ap3 10:10 CT Lumbar Spine Wo Con In Process Unspecified. EDMS 10:56 Becky Rose, MELLY is Primary Nurse. ss 11:08 Patient has correct armband on for positive identification. ss 11:08 No provider procedures requiring assistance completed. Patient did not have IV access ss during this emergency room visit. Administered Medications: No medications were administered Medication: 11:08 VIS not applicable for this client. ss Outcome: 10:38 Discharge ordered by . jmm 11:08 Discharged to home ambulatory. ss 11:08 Condition: good 11:08 Discharge instructions given to patient, Instructed on discharge instructions, follow up and referral plans. medication usage, Demonstrated understanding of instructions, follow-up care, medications, Prescriptions given X 2. 11:11 Patient left the ED. ss Signatures: Dispatcher [employer] EDMS Brandon Adames PA PA jmm Smirch, Shelby, RN RN ss Melisa Marion rg4 Zara Sanchez RN RN ap3
[2021-12-01 11:15] VITALS: BP 185/101; TEMP 97.7; O2SAT 99
== END 2021-12-01 11:11 | disposition home or self-care (01) ==
LOC: ER 09:10
DX: S39.012A Strain of muscle, fascia and tendon of lower back, initial encounter (principal); S39.013A Strain of muscle, fascia and tendon of pelvis, initial encounter; N39.0 Urinary tract infection, site not specified; I10 Essential (primary) hypertension; F17.220 Nicotine dependence, chewing tobacco, uncomplicated
CPT/HCPCS: 72131; 81003; 99283

== ENCOUNTER 2024-06-06 14:00 | Day surgery (SDC) | payer MEDICAID ==
[2024-06-02 13:28] LABS: Absolute Eosinophils 0.3 K/uL (0-0.5); Absolute Lymphocytes (CBC) 1.3 K/uL (0.7-4.9); Absolute Monocytes 0.6 K/uL (0.1-1.3); Absolute Neutrophil 2.5 K/uL (1.8-8.0); Basophils % 0.7 % (0-1.3); Eosinophils % 5.4 % (0-4.4); Hematocrit 40.2 % (39.6-49.0); Lymphocytes % 28.1 % (15.3-44.8); MCH 34.4 pg (27.0-35.0); MCHC 34.9 g/dL (32.0-36.0); MCV 98.5 fL (80-100); MPV 7.7 fL (7.6-11.3); Monocytes % 13.1 % (3.3-12.3); Neutrophils % 52.7 % (41.7-73.7); Platelets 178 thou/uL (152-406); RBC Red Blood Cell Count 4.08 M/uL (4.33-5.43); Red Cell Distribution Width 12.9 % (12.1-15.2)
[2024-06-02 13:42] LABS: Anion Gap 6.3 mEq/L (5.0-15.0); Potassium 4.3 mEq/L (3.5-5.1)
[2024-06-02 13:44] LABS: PT Prothrombin Time 11.1 SECONDS (9.4-12.5); PTT, Activated Partial Thromb 33.2 SECONDS (24.3-36.9); Protime INR 0.99
--- NOTE | 2024-06-02 16:42 | RAD REPORT ---
EXAMINATION: TWO VIEW CHEST XR CLINICAL INDICATION: Male, 69 years old. [facility] MAIN pre op TECHNIQUE: 2 view radiographs of the chest were performed. COMPARISON: 06/04/2019 FINDINGS: The lungs are hyperexpanded suggesting COPD. No pneumothorax or sizable effusion. The heart is normal in size. Mediastinal contours are unremarkable. Mid thoracic anterior wedge compression deformity, stable. IMPRESSION: No acute pulmonary process. Chronic findings as above.
[2024-06-06] MEDS ORDERED: LIDOCAINE 1% 20 ML MDV ONE (15:05)
[2024-06-06] MEDS ORDERED: HEPA 1000U/500MLS 2,000 UNIT/1,000 ML BAG IV ONE (15:06)
[2024-06-06] MEDS ORDERED: HEPARIN 10,000 UNIT/10 ML VIAL IV ONE (15:30)
[2024-06-06] MEDS ORDERED: ATROPINE SULF 1 MG/10 ML SYR IV ONE (15:30)
[2024-06-06] MEDS ORDERED: TICAGRELOR 90 MG TABLET PO ONE (15:31)
[2024-06-06] MEDS ORDERED: ASPIRIN 325 MG TAB ONE (15:31)
[2024-06-06] MEDS ORDERED: CLOPIDOGREL 75 MG TABLET ONE (15:31)
[2024-06-06] MEDS ORDERED: VERAPAMIL HCL 10 MG/4 ML VIAL IV ONE (16:12)
[2024-06-06] MEDS ORDERED: FENTANYL CITR 100 MCG/2 ML ONE (16:13)
[2024-06-06] MEDS ORDERED: MIDAZOLAM HCL 2 MG/2 ML INJ ONE (16:13)
[2024-06-06] MEDS ORDERED: HEPARIN 5000 UNIT/ML 1 ML VIAL ONE (16:13)
[2024-06-06] MEDS ORDERED: NALOXONE 0.4 MG/ML VIAL ONE (16:15)
[2024-06-06] MEDS ORDERED: FLUMAZENIL 0.1 MG/ML (5 mL VIAL) IV ONE (16:15)
--- NOTE | 2024-06-07 02:17 | OP ---
Date of Procedure: 06/06/2024 Surgeon: AVA GALAVIZ Procedure Performed: Peripheral angiogram with runoff. Indication: Peripheral vascular disease with significant pain in lower extremities with activities. Access: Right radial artery 6-Icelandic, closed with TR band. Complications: None. Bleeding: Less than 50 mL. Anesthesia: Total sedation time is 45 minutes, used fentanyl, Versed. Description Of Procedure: After risks, benefits, and alternatives were explained, the patient agreed to procedure and signed informed consent. The patient was brought into cardiac catheterization [facility], prepped and draped in usual sterile fashion. Then, I accessed right radial artery using [facility] micropuncture kit, placed 6-Icelandic Slender sheath, and took a long 4-Icelandic pigtail catheter, p laced in distal aorta, performed distal aortogram with runoff and then advanced the catheter into the external iliac on the right side from the right lower extremity angiogram and then removed the kain ter and the sheath, placed TR band with good hemostasis. Findings: 1.Distal aorta is widely patent. 2.Right lower extremity; the right common iliac is patent. Right external iliac into the common fem oral is diffusely diseased 80% to 90%, heavily calcified. The SFA has mild disease proximally and th en the rest of it is normal. Normal popliteal artery and profunda. Normal anterior tibial, tibial t runk, and peroneal and posterior tibial arteries. 3.Left lower extremity; left common iliac, external iliacs are patent and the iliac stent and common femoral stent is patent with 40% to 50% ISR and profunda is patent. SFA is normal. Popliteal arter y is normal, and the anterior tibial, posterior tibial, and peroneal, they all appear to be filling v kvng well, but slow flow. Conclusion: Severe right common femoral and iliac artery stenosis. Recommendations: Consult Vascular Surgery for possible endarterectomy. If it is not an available op tion, then we will plan for shockwave lithotripsy and balloon angioplasty, possible stent placement. SR/MODL Voice ID: [id number] Report ID: [id number]
--- NOTE | 2024-06-08 12:17 | EKG ---
Test Date: 2024-06-02 Test Time: 14:05:44 Rn Complex Care: RANJAN MEASUREMENT RESULTS: Intervals: Rate: 70 [place]: 152 QRSD: 138 QT: 410 QTc: 442 [place]: P: 79 [place]: 152 QRS: 82 T: 244 INTERPRETIVE STATEMENTS: Normal sinus rhythm Nonspecific intraventricular block T wave abnormality, consider inferolateral ischemia Abnormal ECG Compared to ECG 06/04/2019 23:48:39 T-wave abnormality now present Possible ischemia now present Left bundle-branch block no longer present Electronically Signed On 06-08-24 12:13:55 DATABASE ARCHITECT by Gerard Galindo
[2024-06-09 01:27] VITALS: BP 144/66; TEMP 97; O2SAT 100
== END 2024-06-06 18:00 | disposition home or self-care (01) ==
LOC: CCL 14:00
PROVIDERS: ATTEND Internal Medicine
DX: I70.223 Atherosclerosis of native arteries of extremities with rest pain, bilateral legs (principal); T82.856A Stenosis of peripheral vascular stent, initial encounter; I10 Essential (primary) hypertension; E78.5 Hyperlipidemia, unspecified; Z79.899 Other long term (current) drug therapy; Z91.040 Latex allergy status; Z88.8 Allergy status to other drugs, medicaments and biological substances
CPT/HCPCS: 93005 ×2; 85025; 80048; 36415; 85610; 85730; 71046; 75625; 36246; 75716; C1893; J1644; J2003; J2250; J3010; 36200; 75630; 99152; 99153; J0461; J2310